=== PATIENT | male | born 1940 | race Caucasian/White ===

== ENCOUNTER 2019-11-07 19:59 | Emergency (ER) | payer MEDICARE ==
[~2019-11-07 19:59] MED LIST: Atropine Sulfate 1 mg/10 ml Syringe ONE; EPINEPHrine 1 MG/10 ML Abboject SYRINGE ONE; Sodium Bicarb 50 MEQ/50 ML Abboject 8.4% SYRINGE ONE
== END 2019-11-07 20:25 | disposition expired ==
LOC: EDBD 19:59 → ERS 19:59
DX: I46.9 Cardiac arrest, cause unspecified (principal); I48.91 Unspecified atrial fibrillation; Z86.73 Personal history of transient ischemic attack (TIA), and cerebral infarction without residual deficits; Z79.899 Other long term (current) drug therapy
CPT/HCPCS: 31500; 92950; 96374; 96375; J0171; J0461